=== PATIENT | male | born 1960 | race African-American/Black ===

== ENCOUNTER 2023-08-30 16:41 | Inpatient (IN) | payer MEDICARE, OTHER ==
[~2023-08-30] VITALS: Ht 198.1 cm; Wt 99.8 kg
[2023-08-30] MEDS ORDERED: MAGN400O6 PO (18:32)
[2023-08-30] MEDS ORDERED: LISI20TA30 PO (18:32)
[2023-08-30] MEDS ORDERED: TRAZ150T75 PO (18:32)
[2023-08-30] MEDS ORDERED: DOCU100T2 PO (18:32)
[2023-08-30] MEDS ORDERED: GUAI-791 PO (18:32)
[2023-08-30] MEDS ORDERED: LEVE500T20 PO (18:32)
[2023-08-30] MEDS ORDERED: RIVA10TA PO (18:32)
[2023-08-30] MEDS ORDERED: PRED20TA PO (18:32)
[2023-08-30] MEDS ORDERED: DIPH25TA23 PO (18:32)
[2023-08-30] MEDS ORDERED: PANT40TA49 PO (18:32)
[2023-08-30] MEDS ORDERED: DULO60CA45 PO (18:32)
[2023-08-30] MEDS ORDERED: GABA600T12 PO (18:32)
[2023-08-30] MEDS ORDERED: ALBU8.5H8 IH (18:32)
[2023-08-30] MEDS ORDERED: VALP250S3 PO (18:32)
[2023-08-30] MEDS ORDERED: LACT10SO58 PO (18:32)
[2023-08-30] MEDS ORDERED: SENN8.6T19 PO (18:32)
[2023-08-30] MEDS ORDERED: ATOR40TA PO (18:32)
[2023-08-30] MEDS ORDERED: DICL2SOL TP (18:32)
[2023-08-30] MEDS ORDERED: QUET50TA PO (18:32)
[2023-08-30] MEDS ORDERED: L. A1TAB10 PO (18:32)
[2023-08-30 20:13] LABS: BASOPHILS # (AUTO) 0.1 K/UL (0.0-0.2); BASOPHILS % (AUTO) 1.5 % (0.0-2.0); EOSINOPHILS # (AUTO) 0.2 K/uL (0.0-0.7); EOSINOPHILS % (AUTO) 2.1 % (0.0-7.0); HEMATOCRIT 33.6 % (36.7-47.1); HEMOGLOBIN 10.9 g/dL (12.5-16.3); LYMPHOCYTES # (AUTO) 1.8 K/uL (0.8-4.8); MEAN CORPUSCULAR HEMOGLOBIN 27.2 uug (23.8-33.4); MEAN CORPUSCULAR HGB CONC 32 g/dL (32.5-36.3); MEAN CORPUSCULAR VOLUME 83.7 fL (73.0-96.2); MONOCYTES # (AUTO) 0.8 K/uL (0.1-1.30); NEUTROPHILS # (AUTO) 6.5 K/uL (1.8-8.9); NEUTROPHILS % (AUTO) 68.4 % (38.5-71.5); PLATELET COUNT (AUTO) 478 K/uL (152-348); RED BLOOD CELL COUNT(AUTO) 4.02 MIL/uL (4.06-5.63); RED CELL DISTRIBUTION WIDTH 15.9 % (12.1-16.2); WHITE BLOOD COUNT (AUTO) 9.5 K/uL (3.6-10.2)
[2023-08-30 20:20] LABS: DIFFERENTIAL COMMENT 1
[2023-08-30 20:25] LABS: AMMONIA 24 umol/L (11-32)
[2023-08-30 20:38] LABS: THYROID STIMULATING HORMONE 2.253 mIU/mL (0.358-3.740)
[2023-08-30 20:39] LABS: ALANINE AMINOTRANSFERASE 10 U/L (16-63); ALBUMIN 2.3 g/dL (3.4-5.0); ALKALINE PHOSPHATASE 63 U/L (50-136); ASPARTATE AMINOTRANSFERASE 54 U/L (15-37); BILIRUBIN,DIRECT 0.1 mg/dL (0.0-0.2); BILIRUBIN,TOTAL 0.3 mg/dL (0.2-1.0); CALCIUM 8.9 mg/dL (8.5-10.1); CARBON DIOXIDE 27 mmol/L (21-32); CHLORIDE 101 mmol/L (98-107); CREATININE 2.8 mg/dL (0.6-1.3); GLUCOSE 117 mg/dL (74-106); POTASSIUM 4.9 mmol/L (3.5-5.1); SODIUM SERUM 138 mmol/L (136-145); TOTAL PROTEIN, SERUM 7.8 g/dL (6.4-8.2); UREA NITROGEN, BLOOD 30 mg/dL (7-18)
[2023-08-30 20:41] LABS: ETHANOL < 3 MG/DL (0-10)
[2023-08-30 20:42] LABS: ACETAMINOPHEN < 2.0 ug/mL (10-30)
[2023-08-30] MEDS ORDERED: REMEDY ESSENTIAL ZINC PASTE 113 GM TP PRN (21:15)
[2023-08-30] MEDS ORDERED: IV NS 1000 ML 1,000 ML IV PRN (21:15)
[2023-08-30] MEDS ORDERED: GUAIFENESIN/DEXTROMETHORPHAN 5 ML UDC PO PRN (21:15)
[2023-08-30] MEDS ORDERED: ONDANSETRON 4 MG/2 ML VIAL IV PRN (21:15)
[2023-08-30] MEDS ORDERED: LACTULOSE 20 G/30 ML LIQUID UDC PO PRN (21:15)
[2023-08-30] MEDS ORDERED: MAGNESIUM HYDROXIDE 30 ML LIQUID UDC PO PRN (21:15)
[2023-08-30] MEDS ORDERED: CEFTRIAXONE /D5W 50ML IVPB **ER PYXIS IV ONE (21:21)
[2023-08-30] MEDS ORDERED: AZITHROMYCIN 500MG/ D5W 250ML IVPB **ER PYXIS ONLY IV ONE (21:22)
[2023-08-30] MEDS: CEFTRIAXONE 1 G in IV DEXTROSE 5% 50 ML IV ONE (21:36)
[2023-08-30] MEDS: AZITHROMYCIN 250 MG TABLET PO ONE (21:37)
[2023-08-30] MEDS: AZITHROMYCIN IV 500 MG in IV DEXTROSE 5% 250 ML IV SCH (22:06)
[2023-08-30] MEDS ORDERED: ALBUTEROL SULFATE 2.5 MG/3 ML NEBU INH PRN (23:15)
[2023-08-31] MEDS ORDERED: GABAPENTIN 300 MG CAPSULE ONE (08:49)
[2023-08-31] MEDS ORDERED: QUETIAPINE FUMARATE 25 MG TABLET ONE (08:49)
[2023-08-31] MEDS ORDERED: levETIRAcetam 250 MG TABLET ONE (08:49)
[2023-08-31] MEDS ORDERED: PANTOPRAZOLE SODIUM 40 MG TABLET.DR PO ONE (08:49)
[2023-08-31] MEDS: VALPROIC ACID 250 MG/5 ML LIQUID UDC PO SCH (09:00)
[2023-08-31] MEDS: levETIRAcetam 500 MG TABLET PO SCH (09:00)
[2023-08-31] MEDS: GABAPENTIN 300 MG CAPSULE PO SCH (09:00)
[2023-08-31] MEDS: PANTOPRAZOLE SODIUM 40 MG TABLET.DR PO SCH (09:00)
[2023-08-31] MEDS: SENNOSIDES 1 TABLET PO SCH (09:00)
[2023-08-31] MEDS: ACIDOPHILUS/BULGARICUS CHEW TAB PO SCH (09:00)
[2023-08-31] MEDS: QUETIAPINE FUMARATE 25 MG TABLET PO SCH (09:00)
[2023-08-31] MEDS: DULOXETINE 60 MG CAPSULE.DR PO SCH (09:00)
[2023-08-31 09:56] LABS: *BILIRUBIN,URIN NEGATIVE (NEGATIVE); *BLOOD, URINE NEGATIVE (NEGATIVE); *CLARITY,URINE CLEAR (CLEAR); *COLOR,URINE DARK YELLOW (YELLOW); *KETONES,URINE NEGATIVE (NEGATIVE); *PROTEIN,URINE 1+ (NEGATIVE); *UROBILINOGEN,URINE 0.2 E.U./dl (NORMAL); LEUKOCYTE ESTERASE ,URINE TRACE (NEGATIVE); NITRITE, URINE NEGATIVE (NEGATIVE); UGLUCOSE NEGATIVE (NEGATIVE)
[2023-08-31 10:30] LABS: *AMPHETAMINE, URINE NEGATIVE (NEGATIVE); *BARBITURATE, URINE NEGATIVE (NEGATIVE); *BENZODIAZEPINE, URINE NEGATIVE (NEGATIVE); *CANNABINOID, URINE NEGATIVE (NEGATIVE); *COCCAINE, URINE NEGATIVE (NEGATIVE); *OPIATE, URINE POSITIVE (NEGATIVE); *PHENCYCLIDINE SCREEN,URINE NEGATIVE (NEGATIVE); FENTANYL, URINE NEGATIVE (NEGATIVE)
[2023-08-31 10:43] LABS: BACTERIA,URINE FEW /HPF (NONE SEEN); RBC,URINE NONE SEEN /HPF (0-3); SQUAMOUS EPITHELIAL CELL,UR MODERATE /HPF (NONE SEEN)
[2023-08-31 11:43] VITALS: BP 115/49; TEMP 99.5; O2SAT 94
[2023-08-31 14:45] LABS: BASOPHILS % (AUTO) 0.4 % (0.0-2.0); EOSINOPHILS # (AUTO) 0.3 K/uL (0.0-0.7); EOSINOPHILS % (AUTO) 2.8 % (0.0-7.0); HEMATOCRIT 30.2 % (36.7-47.1); HEMOGLOBIN 9.8 g/dL (12.5-16.3); LYMPHOCYTES # (AUTO) 1.7 K/uL (0.8-4.8); MEAN CORPUSCULAR HEMOGLOBIN 26.9 uug (23.8-33.4); MEAN CORPUSCULAR HGB CONC 33 g/dL (32.5-36.3); MEAN CORPUSCULAR VOLUME 82.5 fL (73.0-96.2); MONOCYTES # (AUTO) 0.8 K/uL (0.1-1.30); MONOCYTES % (AUTO) 8.4 % (0.0-11.0); NEUTROPHILS # (AUTO) 6.5 K/uL (1.8-8.9); NEUTROPHILS % (AUTO) 70.4 % (38.5-71.5); PLATELET COUNT (AUTO) 497 K/uL (152-348); RED BLOOD CELL COUNT(AUTO) 3.66 MIL/uL (4.06-5.63); RED CELL DISTRIBUTION WIDTH 15.5 % (12.1-16.2); WHITE BLOOD COUNT (AUTO) 9.2 K/uL (3.6-10.2)
[2023-08-31 14:49] LABS: CALCIUM 8.5 mg/dL (8.5-10.1); CREATININE 1.9 mg/dL (0.6-1.3); MAGNESIUM 2.2 mg/dL (1.8-2.4); PHOSPHOROUS 3.8 mg/dL (2.5-4.9); POTASSIUM 4.1 mmol/L (3.5-5.1)
[2023-08-31 14:50] LABS: DIFFERENTIAL COMMENT 1
[2023-08-31 16:00] VITALS: BP 118/43; TEMP 99.1; O2SAT 99
[2023-08-31] MEDS: TRAZODONE 100 MG TABLET PO SCH (18:19)
[2023-08-31] MEDS: ACETAMINOPHEN 325 MG TABLET PO PRN (18:20)
[2023-08-31] MEDS: IV NS 1000 ML 1,000 ML IV PRN (19:59)
[2023-08-31 20:00] VITALS: BP 109/52; TEMP 98.1; O2SAT 99
[2023-08-31] MEDS: CEFTRIAXONE 1 G in IV DEXTROSE 5% 50 ML IV SCH (20:00)
[2023-08-31] MEDS: ATORVASTATIN 40 MG TABLET PO SCH (20:25)
[2023-08-31] MEDS: DOCUSATE SODIUM 250 MG CAPSULE PO SCH (20:28)
[2023-09-01 00:28] VITALS: BP 113/43; TEMP 98.2; O2SAT 94
[2023-09-01 05:59] VITALS: BP 123/75; TEMP 98.3; O2SAT 93
[2023-09-01 08:08] VITALS: BP 147/33; TEMP 98.6; O2SAT 95
[2023-09-01 08:28] LABS: BASOPHILS % (AUTO) 0.6 % (0.0-2.0); EOSINOPHILS # (AUTO) 0.3 K/uL (0.0-0.7); EOSINOPHILS % (AUTO) 4.1 % (0.0-7.0); HEMATOCRIT 28.7 % (36.7-47.1); HEMOGLOBIN 9.6 g/dL (12.5-16.3); LYMPHOCYTES # (AUTO) 2.5 K/uL (0.8-4.8); LYMPHOCYTES % (AUTO) 33.9 % (20.5-51.5); MEAN CORPUSCULAR HEMOGLOBIN 27.3 uug (23.8-33.4); MEAN CORPUSCULAR HGB CONC 34 g/dL (32.5-36.3); MEAN CORPUSCULAR VOLUME 81.3 fL (73.0-96.2); MONOCYTES # (AUTO) 0.8 K/uL (0.1-1.30); MONOCYTES % (AUTO) 10.6 % (0.0-11.0); NEUTROPHILS # (AUTO) 3.8 K/uL (1.8-8.9); NEUTROPHILS % (AUTO) 50.8 % (38.5-71.5); PLATELET COUNT (AUTO) 421 K/uL (152-348); RED BLOOD CELL COUNT(AUTO) 3.54 MIL/uL (4.06-5.63); RED CELL DISTRIBUTION WIDTH 15.4 % (12.1-16.2); WHITE BLOOD COUNT (AUTO) 7.5 K/uL (3.6-10.2)
[2023-09-01 08:30] LABS: DIFFERENTIAL COMMENT 1
[2023-09-01 08:39] LABS: CALCIUM 8.2 mg/dL (8.5-10.1); CREATININE 1.6 mg/dL (0.6-1.3); POTASSIUM 3.9 mmol/L (3.5-5.1)
[2023-09-01] MEDS ORDERED: OLANZAPINE 10 MG VIAL IM ONE (09:15)
[2023-09-01] MEDS: SODIUM HYPOCHLORITE 0.125% (QUARTER STRENGTH) 473 ML BOTTLE TP SCH (14:08)
[2023-09-01 16:00] VITALS: BP 100/43; TEMP 97.6; O2SAT 97
[2023-09-01 20:38] VITALS: BP 115/45; TEMP 98; O2SAT 98
[2023-09-01] MEDS: CLOTRIMAZOLE/BETAMET DIPROP CREAM 15 GM TUBE TOP SCH (21:32)
[2023-09-02 04:12] VITALS: BP 121/38; TEMP 98; O2SAT 98
[2023-09-02 11:36] VITALS: BP 117/63; TEMP 98.9; O2SAT 98
[2023-09-02 15:53] VITALS: BP 130/55; TEMP 98.3; O2SAT 95
[2023-09-02] MEDS: LOPERAMIDE HCL 2 MG CAPSULE PO ONE (16:00)
[2023-09-02 20:36] VITALS: BP 128/68; TEMP 98.3; O2SAT 96
[2023-09-03 09:23] VITALS: BP 145/47; TEMP 98; O2SAT 96
[2023-09-03 14:35] VITALS: BP 149/40; TEMP 98.7; O2SAT 95
[2023-09-03 17:08] VITALS: BP 135/46; TEMP 98.9; O2SAT 97
== END 2023-09-03 17:05 | DRG 193 ==
LOC: ER 16:44 → TELE3 08-31 09:25 → MEDSURG3 09-01 10:29
PROVIDERS: ADMIT Nurse Practitioner Acute Care; ATTEND Nurse Practitioner Acute Care
PROC: 05HB33Z Insertion of Infusion Device into Right Basilic Vein, Percutaneous Approach (ICD-10-PCS; principal; 2023-08-31)
DX: J15.9 Unspecified bacterial pneumonia (principal); G93.41 Metabolic encephalopathy; N17.9 Acute kidney failure, unspecified; I69.354 Hemiplegia and hemiparesis following cerebral infarction affecting left non-dominant side; E44.0 Moderate protein-calorie malnutrition; E78.5 Hyperlipidemia, unspecified; G40.909 Epilepsy, unspecified, not intractable, without status epilepticus; K21.9 Gastro-esophageal reflux disease without esophagitis; E88.09 Other disorders of plasma-protein metabolism, not elsewhere classified; Z68.25 Body mass index [BMI] 25.0-25.9, adult; Z79.899 Other long term (current) drug therapy; F03.90 Unspecified dementia, unspecified severity, without behavioral disturbance, psychotic disturbance, mood disturbance, and anxiety; F29 Unspecified psychosis not due to a substance or known physiological condition; G89.29 Other chronic pain; M54.9 Dorsalgia, unspecified; I10 Essential (primary) hypertension; M15.9 Polyosteoarthritis, unspecified; Z99.3 Dependence on wheelchair
CPT/HCPCS: 36415; 70450; 71045; 72125; 83605; 83735; 84100; 84443; 84484; 85025; 85730; 87040; 93005; A6213; G0378; G0480; J0456; J0696; J7040; J7050